=== PATIENT | female | born 1990 | race Caucasian/White ===

== ENCOUNTER 2023-11-19 08:15 | Outpatient (RCR) | payer OTHER, SELFPAY | END 2023-11-21 15:42 | disposition home or self-care (01) | PROVIDERS: PCP Family Medicine; Visit Provider Family Medicine | DX: M54.6 Pain in thoracic spine (principal); Z51.89 Encounter for other specified aftercare | CPT/HCPCS: 97110; 97140; 97161 ==

== ENCOUNTER 2024-06-03 15:33 | Outpatient (CLI) | payer OTHER, SELFPAY ==
[2024-06-06 01:04] LABS: HPV Source Cervical; HPV, High Risk by TMA Not Detected
== END 2024-06-03 15:34 | disposition home or self-care (01) ==
PROVIDERS: PCP Family Medicine; Visit Provider Obstetrics & Gynecology
DX: Z12.4 Encounter for screening for malignant neoplasm of cervix (principal)
CPT/HCPCS: 87624; 87625; 88141; 88142

== ENCOUNTER 2024-06-11 09:54 | Outpatient (CLI) | payer OTHER, SELFPAY | END 2024-06-11 09:55 | disposition home or self-care (01) | PROVIDERS: PCP Family Medicine; Visit Provider Family Medicine | DX: R03.0 Elevated blood-pressure reading, without diagnosis of hypertension (principal) | CPT/HCPCS: 80053; 84443 ==